=== PATIENT | female | born 1970 | race Caucasian/White ===

== ENCOUNTER 2025-07-07 07:00 | Emergency (ER) | payer SELFPAY ==
[2025-07-07 07:01] VITALS: BP 163/81; PULSE 62; RESP 15; TEMP 36.6; O2SAT 98
[2025-07-07 07:07] VITALS: BP 163/81; PULSE 62; RESP 15; TEMP 36.6; O2SAT 98
--- NOTE | 2025-07-07 07:24 | W.ED.GENAD ---
Discharge Plan Disposition Patient Disposition: Home Discharge Details Clinical Impression: Dental infection Primary Care Provider: None,None ED Provider: El Painter Home Meds and New Rx's Prescriptions: New acetaminophen [Tylenol] 325 mg tablet 975 mg PO ONCE PRNQty: 60 0RF ibuprofen 600 mg tablet 600 mg PO Q6H PRNQty: 30 0RF amoxicillin-pot clavulanate 875-125 mg tablet 1 tab PO BID Qty: 14 0RF Discharge Instructions Instructions: Dental Pain ED Additional Instructions: Please follow-up with your primary care provider regarding your visit to the emergency department today. Be sure to discuss results of all test performed here today to include radiology, and laboratory testing as well as results for any pending cultures. Should your symptoms worsen, or if you develop new concerning symptoms, such as worsening swelling, fever, chills, vomiting, difficulty eating, drinking or breathing please return immediately emergency department for further evaluation. HPI General Date/Time Provider Initiated Documentation: 07/07/25 07:17. HPI Narrative: The patient is a 54-year-old female presenting with a dental infection localized to the lower teeth, with an onset of symptoms occurring a few days ago. She describes the pain as throbbing in nature, with no associated facial swelling. The patient reports a lack of dental care since the onset of the - pandemic and mentions an attempt to remove tartar using a dental pick, which may have precipitated the infection. She denies recent brushing, dental trauma, or cracked teeth. The patient has no known history of diabetes mellitus or hypertension and reports no adverse reactions to analgesic medications. Self-treatment with clove oil and oregano oil has proven ineffective in managing her symptoms. Related Data Home Medications ?Medication ?Instructions ?Recorded ?Confirmed acetaminophen 325 mg tablet 975 mg (3 x 325 mg) PO ONCE PRN 07/07/25 (Tylenol) #60 tabs amoxicillin 875 mg-potassium 1 tab PO BID #14 tabs 07/07/25 clavulanate 125 mg tablet ibuprofen 600 mg tablet 600 mg PO Q6H PRN #30 tabs 07/07/25 Previous Rx's ?Medication ?Instructions ?Recorded acetaminophen 325 mg tablet 975 mg (3 x 325 mg) PO ONCE PRN 07/07/25 (Tylenol) #60 tabs amoxicillin 875 mg-potassium 1 tab PO BID #14 tabs 07/07/25 clavulanate 125 mg tablet ibuprofen 600 mg tablet 600 mg PO Q6H PRN #30 tabs 07/07/25 Allergies Allergy/AdvReac Type Severity Reaction Status Date / Time No Known Allergies Allergy Unverified 07/07/25 07:08 General Stated Complaint: DentalOral CHAD: 4 Review of Systems All systems reviewed & are unremarkable except as noted in HPI and below Exam Narrative Exam Narrative: Vital signs: Reviewed. General Appearance: Alert and oriented. No acute distress. HEENT: No obvious dental caries, there is gingival swelling adjacent to tooth 8 and 9 with tenderness percussion of said teeth; no large collection requiring drainage. No induration or swelling of the floor of the mouth, no palpable anterior to cervical or submental lymphadenopathy no stridor, no trismus Neck: Supple, full range of motion, no observable masses, No meningeal sign. Respiratory: No Respiratory distress. No tachypnea. Cardiovascular: RRR, no edema. Gastrointestinal: Soft, nondistended, No rebound tenderness. Back: No midline tenderness to palpation or palpable step-offs of the C/T/L spine. Skin: Warm and dry, no rash. Neurological: Normal Gait, Grossly intact. Psychiatric: Appropriate for situation. Course Vital Signs Vital signs: Vital Signs Temperature 36.6 C 07/07/25 07:01 Pulse 62 07/07/25 07:01 Respiratory Rate 15 07/07/25 07:01 Blood Pressure 163/81 H 07/07/25 07:01 Pulse Oximetry 98 07/07/25 07:01 Temperature 36.6 C 07/07/25 07:07 Temperature Source Tympanic 07/07/25 07:07 Pulse 62 07/07/25 07:07 Respiratory Rate 15 07/07/25 07:07 Blood Pressure 163/81 H 07/07/25 07:07 Blood Pressure Position Sitting 07/07/25 07:07 Pulse Oximetry 98 07/07/25 07:07 Oxygen Delivery Method Room Air 07/07/25 07:07 Oxygen Flow Rate 0 07/07/25 07:07 Pain Level 0 07/07/25 07:13 Medical Decision Making 54-year-old female with likely periapical abscess. Symptoms: pain, tenderness in lower teeth, no facial swelling, fever, or chills. No significant pus collection. Augmentin prescribed. Tylenol, ibuprofen for pain. Dental examination recommended. First dose of medications given before discharge. Dental follow-up needed. Clinical Impression: Dental infection. Disposition: Discharge. Return if severe swelling under chin, excessive drooling, difficulty swallowing, or voice changes. Follow-Up: Dental examination needed. Return precautions discussed. This document was created with assistance from [employer]. The patient consented to its use. PFSH All Active Problems (Updated 07/07/25 @ 07:25 by El Painter MD) Dental infection (Acute) Social History Smoking/Tobacco Use Status: Never Smoking risk assessment performed?: Yes Alcohol Intake: current Alcohol Intake frequency: holidays/special occasions only Drug use: Daily Substance use type: marijuana Housing: house
[2025-07-07] MEDS: Ibuprofen 600 MG TAB PO (07:33)
[2025-07-07] MEDS: Amoxicillin 875/Clav. 125 TAB PO (07:33)
[2025-07-07] MEDS: Acetaminophen 500 MG TAB 1000 MG PO (07:33)
== END 2025-07-07 07:37 | disposition home or self-care (01) ==
LOC: ER 07:44
PROVIDERS: Emergency Provider General Practice
DX: R68.84 Jaw pain (principal); K04.7 Periapical abscess without sinus
CPT/HCPCS: 99283 ×2